=== PATIENT | female | born 1960 | race Caucasian/White ===

== ENCOUNTER 2023-01-10 12:12 | Outpatient (CLI) | payer OTHER ==
[2023-01-10] MEDS ORDERED: iohexoL-300 100 ML VIAL IVP ONE (16:58)
[2023-01-10] MEDS ORDERED: BARIUM SULFATE 450 ML BOTTLE PO ONE (16:58)
--- NOTE | 2023-01-10 17:36 | CT Report ---
PROCEDURE: ABDOMEN/PELVIS W INDICATIONS: RIGHT LOWER QUADRANT PAIN CONTRAST: 100ml Omni 300 TECHNIQUE: After the administration of oral and intravenous contrast, 5 mm thick sections acquired from the diap hragms to the symphysis. 5 mm thick coronal and sagittal reformats were acquired. For radiation dos e reduction, the following was used: automated exposure control, adjustment of mA and/or kV accordin g to patient size. COMPARISON: None FINDINGS: Image quality: Excellent. Lung bases and heart: Unremarkable. Liver: There are mild diffuse hepatic steatosis. No solid mass. Gallbladder and biliary tree: No radiopaque stones or wall thickening. No biliary dilation. Spleen: No splenomegaly. Pancreas: No pancreatic ductal dilation. Adrenals: No adrenal nodule. Kidneys and ureters: No hydronephrosis. No renal cystic lesion which requires follow up. No solid mas s. Bowel and peritoneum: Large diffuse fecal load. Lymph nodes: No central or retroperitoneal adenopathy. Vessels: No infrarenal aortic aneurysm. PELVIS Reproductive organs: Unremarkable. Bladder: No abnormal wall thickening, accounting for underdistension. Pelvic lymph nodes: No pelvic adenopathy by size criteria. Bones: No aggressive osseous abnormality. Other: No significant ventral or inguinal hernia. IMPRESSION: Large diffuse fecal load. No acute abdominal process. Reviewed by: Pineda Vasques MD on 01/10/2023 5:35 PM PDT Approved by: Pineda Vasques MD on 01/10/2023 5:35 PM PDT Station ID: [id number]
== END 2023-01-10 12:13 | disposition home or self-care (01) ==
LOC: DI 12:12
PROVIDERS: ATTEND Physician Assistant
DX: R10.31 Right lower quadrant pain (principal)
CPT/HCPCS: 74177; A9270; Q9967